=== PATIENT | female | born 1985 | race Caucasian/White ===

== ENCOUNTER 2017-06-12 12:34 | Observation (INO) | payer OTHER ==
--- NOTE | 2017-06-12 12:37 | PDOC ---
History of Present Illness - General History Source: Patient Exam Limitations: No Limitations - History of Present Illness Initial Comments: 06/12/17 12:48 31 year old female, with significant past medical history of heroin use, who presents to the emergency room BIBA after overdosing on heroin prior to arrival to the emergency room. EMS administered Narcan en route to the ER. The patient is awake and states that she was released from nursing home yesterday. She shot up heroin this morning and cannot remember anything after that. The last time she used heroin was just before being put in nursing home. The patients clothes are soaking wet and she reports the chills. She is not complaining of any pain at this time. Allergies: NKDA <Milagros Black - Last Filed: 06/12/17 13:01> <Elana Jhaveri - Last Filed: 06/12/17 16:38> <Asha Siu - Last Filed: 06/12/17 21:15> - General Stated Complaint: OVERDOSE Time Seen by Provider: 06/12/17 12:36 Past History <Milagros Black - Last Filed: 06/12/17 13:01> - Past Medical History Anemia: No Asthma: No Cancer: No Cardiac Disorders: No CVA: No COPD: No CHF: No Dementia: No Diabetes: No GI Disorders: No Disorders: No HTN: No Hypercholesterolemia: No Kidney Stones: No Liver Disease: No Seizures: No Thyroid Disease: No - Surgical History Abdominal Surgery: No Appendectomy: No Cardiac Surgery: No Cholecystectomy: No Lung Surgery: No Neurologic Surgery: No Orthopedic Surgery: No - Reproductive History PID: No - Suicide/Smoking/Psychosocial Hx Smoking Status: No Smoking History: Current every day smoker Have you smoked in the past 12 months: Yes Number of Cigarettes Smoked Daily: 10 'Breaking Loose' booklet given: 03/10/16 Hx Alcohol Use: No (CLAIMS SPORADIC USE--"NO PROBLEM") Drug/Substance Use Hx: Yes (HEROIN) Substance Use Type: Heroin Hx Substance Use Treatment: Yes ([facility]) <Elana Jhaveri - Last Filed: 06/12/17 16:38> <Asha Siu - Last Filed: 06/12/17 21:15> - Past Medical History Allergies/Adverse Reactions: Allergies Allergy/AdvReac Type Severity Reaction Status Date / Time No Known Allergies Allergy Verified 03/10/16 13:44 Home Medications: Ambulatory Orders NK [No Known Home Medication] 11/03/15 Review of Systems - Review of Systems Able to Perform ROS?: Yes Comments:: 06/12/17 12:49 GENERAL/CONSTITUTIONAL: +chills. No fever. No weakness. HEAD, EYES, EARS, NOSE AND THROAT: No change in vision. No ear pain or discharge. No sore throat. GASTROINTESTINAL: No nausea, vomiting, diarrhea or constipation. GENITOURINARY: No dysuria, frequency, or change in urination. CARDIOVASCULAR: No chest pain or shortness of breath. RESPIRATORY: No cough, wheezing, or hemoptysis. MUSCULOSKELETAL: No joint or muscle swelling or pain. No neck or back pain. SKIN: No rash NEUROLOGIC: No headache, vertigo, loss of consciousness, or change in strength/ sensation. ENDOCRINE: No increased thirst. No abnormal weight change. HEMATOLOGIC/LYMPHATIC: No anemia, easy bleeding, or history of blood clots. ALLERGIC/IMMUNOLOGIC: No hives or skin allergy. <Milagros Black - Last Filed: 06/12/17 13:01> *Physical Exam - Vital Signs Last Vital Signs Temp Pulse Resp BP Pulse Ox 97.3 F L 108 H 20 140/128 94 L 06/12/17 12:42 06/12/17 12:42 06/12/17 12:42 06/12/17 12:42 06/12/17 12:42 - Physical Exam Comments: 06/12/17 13:01 GENERAL: Awake, alert, and fully oriented, in no acute distress HEAD: No signs of trauma EYES: PERRLA, EOMI, sclera anicteric, conjunctiva clear ENT: Auricles normal inspection, hearing grossly normal, nares patent, oropharynx clear without exudates. Moist mucosa NECK: Normal ROM, supple, no lymphadenopathy, JVD, or masses LUNGS: Breath sounds equal, clear to auscultation bilaterally. No wheezes, and no crackles HEART: Regular rate and rhythm, normal S1 and S2, no murmurs, rubs or gallops ABDOMEN: Soft, nontender, normoactive bowel sounds. No guarding, no rebound. No masses EXTREMITIES: Normal range of motion, no edema. No clubbing or cyanosis. No cords, erythema, or tenderness NEUROLOGICAL: Cranial nerves II through XII grossly intact. Normal speech, normal gait SKIN: Warm, Dry, normal turgor, no rashes or lesions noted. <Milagros Black - Last Filed: 06/12/17 13:01> - Physical Exam Comments: GENERAL: Awake, alert, and fully oriented, in no acute distress. +Shivering HEAD: No signs of trauma EYES: Pupils small and reactive, EOMI, sclera anicteric, conjunctiva clear ENT: Auricles normal inspection, hearing grossly normal, nares patent, oropharynx clear without exudates. Moist mucosa NECK: Normal ROM, supple, no lymphadenopathy, JVD, or masses LUNGS: Breath sounds equal, clear to auscultation bilaterally. No wheezes, and no crackles HEART: Regular rate and rhythm, normal S1 and S2, no murmurs, rubs or gallops ABDOMEN: Soft, nontender, normoactive bowel sounds. No guarding, no rebound. No masses EXTREMITIES: Normal range of motion, no edema. No clubbing or cyanosis. No cords, erythema, or tenderness NEUROLOGICAL: Cranial nerves II through XII grossly intact. Slurred speech. Gait not tested due to intox. Motor and sensation intact. SKIN: Cool to palpation, Dry, normal turgor, no rashes or lesions noted. <Elana Jhaveri - Last Filed: 06/12/17 16:38> - Vital Signs Last Vital Signs Temp Pulse Resp BP Pulse Ox 97.6 F 82 20 114/70 95 06/12/17 15:28 06/12/17 15:28 06/12/17 15:28 06/12/17 15:28 06/12/17 15:28 <Asha Siu - Last Filed: 06/12/17 21:15> ED Treatment Course - LABORATORY CBC & Chemistry Diagram: 06/12/17 12:14 06/12/17 12:14 <Elana Jhaveri - Last Filed: 06/12/17 16:38> - LABORATORY CBC & Chemistry Diagram: 06/12/17 12:14 06/12/17 12:14 - ADDITIONAL ORDERS Additional order review: Laboratory Results 06/12/17 06/12/17 06/12/17 12:14 12:14 12:14 Sodium Potassium Chloride Carbon Dioxide Anion Gap BUN Creatinine Creat Clearance w eGFR Random Glucose Calcium Total Bilirubin AST ALT Alkaline Phosphatase Total Protein Albumin Serum , Qual Negative Urine Color Yellow Urine Appearance Slcloudy Urine pH 5.0 D Ur Specific [place] >= 1.030 H Urine Protein 2+ H Urine Glucose (UA) 3+ H Urine Ketones Negative Urine Blood Negative Urine Nitrite Negative Urine Bilirubin Negative Urine Urobilinogen Negative Ur Leukocyte Esterase Negative Urine RBC 1 Urine WBC 3 Ur Epithelial Cells Rare Hyaline Casts 11 Urine Mucus Few Salicylates < 4.0 Opiates Screen Positive Methadone Screen Negative Acetaminophen < 10.0 L Barbiturate Screen Negative Phencyclidine Screen Negative Ur Amphetamines Screen Negative MDMA (Ecstasy) Screen Negative Benzodiazepines Screen Negative Cocaine Screen Positive U Marijuana (THC) Screen Negative Alcohol, Quantitative < 5.0 06/12/17 12:14 Sodium 137 Potassium 4.9 Chloride 101 Carbon Dioxide 26 Anion Gap 10 BUN 21 H D Creatinine 1.1 H D Creat Clearance w eGFR 57.93 Random Glucose 224 H D Calcium 8.5 Total Bilirubin 0.4 AST 27 D ALT 35 D Alkaline Phosphatase 63 Total Protein 8.0 Albumin 4.0 Serum , Qual Urine Color Urine Appearance Urine pH Ur Specific [place] Urine Protein Urine Glucose (UA) Urine Ketones Urine Blood Urine Nitrite Urine Bilirubin Urine Urobilinogen Ur Leukocyte Esterase Urine RBC Urine WBC Ur Epithelial Cells Hyaline Casts Urine Mucus Salicylates Opiates Screen Methadone Screen Acetaminophen Barbiturate Screen Phencyclidine Screen Ur Amphetamines Screen MDMA (Ecstasy) Screen Benzodiazepines Screen Cocaine Screen U Marijuana (THC) Screen Alcohol, Quantitative 06/12/17 12:14 RBC 4.57 MCV 88.2 MCHC 32.7 RDW 14.6 MPV 7.7 D Neutrophils % 61.3 Lymphocytes % 32.2 Monocytes % 4.6 Eosinophils % 1.4 Basophils % 0.5 - Medications Given in the ED: ED Medications Discontinued Medications Generic Name Dose Route Start Last Admin Trade Name Freq PRN Reason Stop Dose Admin Sodium Chloride 1,000 mls @ 1,000 mls/hr 06/12/17 12:43 06/12/17 13:02 Normal Saline - IV 06/12/17 13:42 1,000 mls/hr ASDIR STA Administration Sodium Chloride 1,000 mls @ 1,000 mls/hr 06/12/17 19:05 06/12/17 19:09 Normal Saline - IV 06/12/17 20:04 1,000 mls/hr ASDIR STA Administration Naloxone HCl 0.4 mg 06/12/17 19:21 06/12/17 19:23 Narcan - IVPUSH 06/12/17 19:22 0.4 mg ONCE ONE Administration <Asha Siu - Last Filed: 06/12/17 21:15> Medical Decision Making - Medical Decision Making 06/12/17 16:38 Received call from patient's [id number] requesting information. No medical information given to her via phone, but confirmed that if she presents in person , we can discuss. She states that the patient was visiting her after leaving halfway, went into the bathroom. Shortly after that, the [id number] found her on the bathroom floor, unconscious. She states that she read online that she should splash water onto Ms. Le in case of overdose. I encouraged her to call 911, do not splash with water, as it does not help, and patient arrived in ED shivering from exposure. She states she is going to come to ED to see patient. <Elana Jhaveri - Last Filed: 06/12/17 16:38> - Medical Decision Making 06/12/17 20:43 Pt has elevated blood sugar; she is spilling glc in her urine; she has never had DM in the past. Pt is a heroin and cocaine abuser. Just got out of nursing home today. She remais tachycardic despite 2L NSS. She will be admitted to internal medicine to the hospitalist. <Asha Siu - Last Filed: 06/12/17 21:15> *DC/Admit/Observation/Transfer - Attestations Scribe Attestion: 06/12/17 12:50 Documentation prepared by ADAM Javed, acting as medical physicist for Elana Jhaveri MD. <Milagros Black - Last Filed: 06/12/17 13:01> <Elana Jhaveri - Last Filed: 06/12/17 16:38> - Discharge Dispostion Admit: Yes <Asha Siu - Last Filed: 06/12/17 21:15> Diagnosis at time of Disposition: Opioid abuse with intoxication, Cocaine abuse, Tachycardia, Recent onset of diabetes mellitus - Discharge Dispostion Condition at time of disposition: Guarded
[2017-06-12] MEDS ORDERED: SODIUM CHLORIDE 1,000 ML IV STA ×4 (12:43→23:03)
[2017-06-12 13:08] LABS: BASOPHIL 0.5 % (0-2.0); EOSINOPHIL 1.4 % (0-4.5); MCH 28.9 pg (25.7-33.7); MCHC 32.7 g/dl (32.0-36.0); MEAN CELL VOLUME 88.2 fl (80-96); MEAN PLT VOLUME 7.7 fl (7.5-11.1); NEUTROPHILS 61.3 % (42.8-82.8); PLATELET COUNT 195 K/MM3 (134-434); RDW 14.6 % (11.6-15.6); WHITE BLOOD COUNT 8.6 K/mm3 (4.0-10.0)
[2017-06-12 13:10] LABS: URINE APPEARANCE SLCLOUDY; URINE BILIRUBIN NEGATIVE (NEGATIVE); URINE BLOOD NEGATIVE (NEGATIVE); URINE COLOR YELLOW; URINE GLUCOSE (UA) 3+ (NEGATIVE); URINE KETONE NEGATIVE (NEGATIVE); URINE NITRITE NEGATIVE (NEGATIVE); URINE UROBILINOGEN NEGATIVE mg/dL (0.2-1.0)
[2017-06-12 13:16] LABS: URINE PROTEIN 2+ (NEGATIVE)
[2017-06-12 13:17] LABS: URINE HYALINE CAST 11 /lpf; URINE MUCUS FEW; URINE RBC 1 /hpf (0-3); URINE WBC 3 /hpf (3-5)
[2017-06-12 13:34] LABS: URINE MARIJUANA THC NEGATIVE ng/ml (CUTOFF=50)
[2017-06-12 13:41] LABS: ALCOHOL < 5.0 mg/dl (0-5)
[2017-06-12 13:47] LABS: ALK PHOS 63 U/L (45-117); ANION GAP 10 (8-16); BILIRUBIN,TOTAL 0.4 mg/dL (0.2-1.0); CALCIUM 8.5 mg/dL (8.5-10.1); CO2 26 mmol/L (21-32); CREATININE 1.1 mg/dL (0.55-1.02); GLUCOSE,RANDOM 224 mg/dL (74-106); SGOT/AST 27 U/L (15-37); SGPT/ALT 35 U/L (12-78)
[2017-06-12 15:08] LABS: SALICYLATE < 4.0 mg/dl (0.0-30.0)
[2017-06-12] MEDS ORDERED: NALOXONE HCL 0.4 MG/ML VIAL IVPUSH ONE (19:21)
[2017-06-12] MEDS ORDERED: NALOXONE HCL 0.4 MG/ML VIAL ONE (19:25)
[2017-06-12 20:07] LABS: URINE LEUK ESTERASE Negative (NEGATIVE)
[2017-06-12] MEDS ORDERED: ACETAMINOPHEN 1000 MG/100 ML VIAL (NON FORMULARY) IVPB ONE (20:52)
[2017-06-12] MEDS ORDERED: ACETAMINOPHEN INJECTION 100 ML IVPB ONE (21:53)
[2017-06-12] MEDS ORDERED: ACETAMINOPHEN 325 MG TABLET (FP) PO PRN (22:17)
[2017-06-12] MEDS ORDERED: SODIUM CHLORIDE 1,000 ML IV SCH ×2 (22:30→23:12)
[2017-06-12 23:00] VITALS: BMI 31.1
[2017-06-12] MEDS ORDERED: LORazepam 1 MG TABLET PO PRN (23:00)
--- NOTE | 2017-06-12 23:00 | PN ---
Teaching Attending Note Name of Resident: Dave Rose ATTENDING PHYSICIAN STATEMENT I saw and evaluated the patient. I reviewed the resident's note and discussed the case with the resident. I agree with the resident's findings and plan as documented. SUBJECTIVE: patient was found at home with AMS, according to her she has taken some alprazolam then shot some heroin IV and went to sleep, she was found by her mother and she called 911, patient was given narcan in the ambulance. patient stated that she was incarcerated and was d/c today after 2.5 months. stating she is sober. patient stated she doesnt want to stay here for a long time. when asked about heroin withdrawal symptoms she said she doesn't get them, when offered to receive methadone she said yes, but after explaining the protocol she decline receiving methadone since she wants to be d/c from the hospital. OBJECTIVE: AAOX3 she was eating her food when she was being examined s1 and s2 tachycardia lungs CTA abdomen soft non-tender no edema ASSESSMENT AND PLAN: admit to obs give bolus IVF 1 liter then change to 250cc/hr for a total of 3L heroin withdrawal - patient decline methadone stating she does not have withdrawals since she doesn't use it. benzodiazipine withdrawal - ativan PRN
--- NOTE | 2017-06-12 23:12 | HP ---
CHIEF COMPLAINT: unresponsive PCP: HISTORY OF PRESENT ILLNESS: 31 y/o F w/sig PMH of heroin use, alcohol use, presents to the ER via ambulance after being found by her mother in law on bathroom floor unconscious. Pt was given narcan on the way to the ER and awake s/p narcan. Pt released from group home yesterday. She says she used heroin via IV and has not used in 2.5 months prior to this. She also reports taking xanax. Pt states she has a KAUR at this time but otherwise denies any other complaints currently including N/V/F/C, CP, SOB. Pt is eating sandwich at the time of interview and tolerating diet well. She states she has had withdrawals in the past from heroin use but currently does not feel like she is in withdrawal. ER course was notable for: (1) nalaxone, lorazepam, IVF, CXR (2) (3) PAST MEDICAL HISTORY: heroin abuse PAST SURGICAL HISTORY: x2, tonsillectomy Social History: Smokin cig/day Alcohol: has hx of alcohol abuse Drugs: heroin, benzos, marijuana Family History: n-c Allergies No Known Allergies Allergy (Verified 03/10/16 13:44) HOME MEDICATIONS: Home Medications Medication Instructions Recorded NK [No Known Home Medication] 11/03/15 REVIEW OF SYSTEMS CONSTITUTIONAL: Absent: fever, chills CARDIOVASCULAR: Absent: chest pain RESPIRATORY: Absent: shortness of breath GASTROINTESTINAL: Absent: abdominal pain, nausea, vomiting NEUROLOGIC: +headache Absent: headache PHYSICAL EXAMINATION Vital Signs - 24 hr 06/12/17 22:04 Pulse Rate [ 115 H Left Radial] Respiratory 16 Rate Blood Pressure 127/77 [Left Arm] O2 Sat by Pulse 100 Oximetry (%) GENERAL: Awake, alert, and fully oriented, in no acute distress. Eating sandwich during interview. EARS, NOSE, THROAT: Ears normal, nares patent NECK: Normal range of motion LUNGS: Breath sounds equal, clear to auscultation bilaterally. HEART: Tachycardic, normal S1 and S2 without murmur, rub or gallop. ABDOMEN: Soft, nontender, not distended, normoactive bowel sounds LOWER EXTREMITIES: 2+ pulses, warm, well-perfused. No peripheral edema. NEUROLOGICAL: Normal speech. Gait not observed. PSYCHIATRIC: Cooperative. Good eye contact. Appropriate mood and affect. SKIN: Warm, dry CBCD WBC 8.6 K/mm3 (4.0-10.0) D 06/12/17 12:14 RBC 4.57 M/mm3 (3.60-5.2) 06/12/17 12:14 Hgb 13.2 GM/dL (10.7-15.3) D 06/12/17 12:14 Hct 40.3 % (32.4-45.2) 06/12/17 12:14 MCV 88.2 fl (80-96) 06/12/17 12:14 MCHC 32.7 g/dl (32.0-36.0) 06/12/17 12:14 RDW 14.6 % (11.6-15.6) 06/12/17 12:14 Plt Count 195 K/MM3 (134-434) 06/12/17 12:14 MPV 7.7 fl (7.5-11.1) D 06/12/17 12:14 CMP Sodium 137 mmol/L (136-145) 06/12/17 12:14 Potassium 4.9 mmol/L (3.5-5.1) 06/12/17 12:14 Chloride 101 mmol/L (98-107) 06/12/17 12:14 Carbon Dioxide 26 mmol/L (21-32) 06/12/17 12:14 Anion Gap 10 (8-16) 06/12/17 12:14 BUN 21 mg/dL (7-18) H D 06/12/17 12:14 Creatinine 1.1 mg/dL (0.55-1.02) H D 06/12/17 12:14 Creat Clearance w eGFR 57.93 (>60) 06/12/17 12:14 Random Glucose 224 mg/dL (74-106) H D 06/12/17 12:14 Calcium 8.5 mg/dL (8.5-10.1) 06/12/17 12:14 Total Bilirubin 0.4 mg/dL (0.2-1.0) 06/12/17 12:14 AST 27 U/L (15-37) D 06/12/17 12:14 ALT 35 U/L (12-78) D 06/12/17 12:14 Alkaline Phosphatase 63 U/L (45-117) 06/12/17 12:14 Total Protein 8.0 g/dl (6.4-8.2) 06/12/17 12:14 Albumin 4.0 g/dl (3.4-5.0) 06/12/17 12:14 Urine Test Results Urine Color Yellow 06/12/17 12:14 Urine Appearance Slcloudy 06/12/17 12:14 Urine pH 5.0 (5.0-8.0) D 06/12/17 12:14 Ur Specific [place] >= 1.030 (1.005-1.025) H 06/12/17 12:14 Urine Protein 2+ (NEGATIVE) H 06/12/17 12:14 Urine Glucose (UA) 3+ (NEGATIVE) H 06/12/17 12:14 Urine Ketones Negative (NEGATIVE) 06/12/17 12:14 Urine Blood Negative (NEGATIVE) 06/12/17 12:14 Urine Nitrite Negative (NEGATIVE) 06/12/17 12:14 Urine Bilirubin Negative (NEGATIVE) 06/12/17 12:14 Ur Leukocyte Esterase Negative (NEGATIVE) 06/12/17 12:14 Urine RBC 1 /hpf (0-3) 06/12/17 12:14 Urine WBC 3 /hpf (3-5) 06/12/17 12:14 Ur Epithelial Cells Rare /hpf (FEW) 06/12/17 12:14 Urine Mucus Few 06/12/17 12:14 Utox 06/12/17 06/12/17 12:14 12:14 Salicylates < 4.0 Opiates Screen Positive Methadone Screen Negative Acetaminophen < 10.0 L Barbiturate Screen Negative Phencyclidine Screen Negative Ur Amphetamines Screen Negative MDMA (Ecstasy) Screen Negative Benzodiazepines Screen Negative Cocaine Screen Positive U Marijuana (THC) Screen Negative Alcohol, Quantitative < 5.0 CXR: Pending official read. Appears to have no acute pathology. Active Medications Acetaminophen (Tylenol -) 650 mg PO Q6H PRN PRN Reason: FEVER OR PAIN Sodium Chloride (Normal Saline -) 1,000 mls @ 1,000 mls/hr IV ASDIR STA Stop: 06/12/17 23:16 Sodium Chloride (Normal Saline -) 1,000 mls @ 150 mls/hr IV ASDIR PINKY Sodium Chloride (Normal Saline -) 1,000 mls @ 1,000 mls/hr IV ASDIR STA Stop: 06/13/17 00:02 Sodium Chloride (Normal Saline -) 1,000 mls @ 150 mls/hr IV ASDIR PINKY Stop: 06/15/17 05:54 Lorazepam (Ativan -) 1 mg PO BID PRN PRN Reason: WITHDRAWAL(CONT SUBST) ASSESSMENT/PLAN: 31 y/o F w/sig PMH of heroin use, alcohol use presents to ER for heroin overdose. Pt placed in obs. -Heroin overdose -monitor for withdrawal -s/p narcan -NS @ 250 ml/hr x3 bags + 1L bolus -pt does not want methadone at this time -ativan 1 mg po bid prn for withdrawal -NINFA -Cr 1.1, baseline 0.6 -1L bolus NS + NS @ 250 ml/hr x3 bags -monitor Cr -Hyperglycemia -A1c ordered -consider OP meds for diabetes if A1c elevated -Headache -tylenol 650 mg po q6h prn -if worsening or developing N/V consider head CT as pt was found on floor -Tachycardia -likely due to dehydration -NS 1 L bolus + 250 ml/hr x3 bags -DVT ppx -low risk, EAM -FEN -NS 1 L bolus + 250 ml/hr x3 bags -monitor electrolytes -diabetic diet -Dispo: -admit for obs, likely to be discharged tomorrow. -Consider detox/rehab Visit type - Emergency Visit Emergency Visit: Yes ED Registration Date: 06/12/17 Care time: The patient presented to the Emergency Department on the above date and was hospitalized for further evaluation of their emergent condition. - New Patient This patient is new to me today: Yes Date on this admission: 06/12/17 - Critical Care Critical Care patient: No
[2017-06-12] MEDS: SODIUM CHLORIDE 1,000 ML IV SCH (23:31)
[2017-06-13] MEDS: SODIUM CHLORIDE 1,000 ML IV SCH ×2 (02:00→06:34)
[2017-06-13 08:30] LABS: BASOPHIL 0.3 % (0-2.0); EOSINOPHIL 1.2 % (0-4.5); MCH 29.1 pg (25.7-33.7); MCHC 33.4 g/dl (32.0-36.0); MEAN CELL VOLUME 87.2 fl (80-96); MEAN PLT VOLUME 7.8 fl (7.5-11.1); NEUTROPHILS 53.2 % (42.8-82.8); PLATELET COUNT 187 K/MM3 (134-434); RDW 14.8 % (11.6-15.6)
[2017-06-13 08:58] LABS: ANION GAP 4 (8-16); CALCIUM 8.4 mg/dL (8.5-10.1); CO2 30 mmol/L (21-32); CREATININE 0.5 mg/dL (0.55-1.02); GLUCOSE,RANDOM 72 mg/dL (74-106); MAGNESIUM 2.1 mg/dL (1.8-2.4)
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
[2017-06-13 10:35] VITALS: BP 114/58; PULSE 94; TEMP 98.1
--- NOTE | 2017-06-13 13:12 | EKG ---
Test Reason : Blood Pressure : / mmHG Vent. Rate : 092 BPM Atrial Rate : 092 BPM P-R Int : 118 ms QRS Dur : 100 ms QT Int : 372 ms P-R-T Axes : 071 072 044 degrees QTc Int : 460 ms NORMAL SINUS RHYTHM T WAVE ABNORMALITY, CONSIDER ANTERIOR ISCHEMIA ABNORMAL ECG NO PREVIOUS ECGS AVAILABLE CLINICAL CORRELATION IS RECOMMENDED BASELINE ARTIFACT Confirmed by JONATHAN RAND MD ([id number]) on 06/13/2017 1:12:09 PM Referred By: Confirmed By:JNOATHAN RAND MD
== END 2017-06-13 14:13 | disposition home or self-care (01) ==
LOC: JER 12:34 → JERBED 21:15 → J6S 22:49
PROVIDERS: ADMIT Internal Medicine; ATTEND Nurse Practitioner Family
PROC: 3E033NZ Introduction of Analgesics, Hypnotics, Sedatives into Peripheral Vein, Percutaneous Approach (ICD-10-PCS; principal; 2017-06-12)
PROC: 3E0337Z Introduction of Electrolytic and Water Balance Substance into Peripheral Vein, Percutaneous Approach (ICD-10-PCS; 2017-06-12)
DX: F11.120 Opioid abuse with intoxication, uncomplicated (principal); F14.10 Cocaine abuse, uncomplicated; F17.210 Nicotine dependence, cigarettes, uncomplicated; R00.0 Tachycardia, unspecified; E11.9 Type 2 diabetes mellitus without complications
CPT/HCPCS: 36415; 71010-TC; 80048; 80053; 80307; 81003; 81015; 83036; 83735; 84703; 85025; 93005; 93010; 99285-25; G0378